=== PATIENT | male | born 1975 | race Hispanic/Latino ===

== ENCOUNTER 2018-08-21 10:10 | Emergency (ER) | payer MEDICAID, OTHER ==
[2018-08-21] MEDS ORDERED: ACETAMINOPHEN-CODEINE 300/30MG TAB ONE (10:29)
[2018-08-21] MEDS ORDERED: CYCLOBENZAPRINE HCL 10 MG TABLET ONE (10:29)
[2018-08-21] MEDS ORDERED: KETOROLAC TROMETHAMINE 30MG/ML ONE (10:30)
== END 2018-08-21 11:51 | disposition home or self-care (01) ==
LOC: EDH 10:10
DX: M62.830 Muscle spasm of back (principal); M54.5 Low back pain; X50.0XXA Overexertion from strenuous movement or load, initial encounter; Y93.89 Activity, other specified; Y92.89 Other specified places as the place of occurrence of the external cause; Y99.8 Other external cause status
CPT/HCPCS: 72100; 96372; 99284; J1885